=== PATIENT | female | born 1990 | race African-American/Black ===

== ENCOUNTER 2019-11-11 10:45 | Emergency (ER) | payer SELFPAY ==
--- NOTE | ~2019-11-11 | CT_ITS ---
EXAMINATION: CT abdomen pelvis w con EXAM DATE: 11/11/2019 12:10 INDICATION: Right lower quadrant pain. TECHNIQUE: Spiral CT of the abdomen and pelvis was performed following intravenous injection of 100 m L Omnipaque 350. Axial, coronal and sagittal images were reviewed. The dose-length product (DLP) fo r this examination was 1207.63 mGy-cm. The exposure was tailored according to patient size (auto mA exposure control), and iterative reconstruction (ASIR) was used as additional dose reduction techniqu e. There is no prior study for comparison. FINDINGS: The liver, spleen, adrenal glands and pancreas are unremarkable. Gallbladder is unremarkab le. No biliary obstruction. Region of decreased enhancement in the upper pole of the left kidney wi thout discrete mass identified. Appearance is suspicious for acute pyelonephritis. The uterus and ov carol are unremarkable, no adnexal mass. Right ovary is contiguous to the cecal base. The bladder is unremarkable. There is no retroperitoneal or pelvic lymphadenopathy. The appendix is not positively visualized. There is no pericecal inflammatory change to suggest appe ndicitis. The stomach and small bowel are unremarkable. There is expected amount of colonic stool. No free intraperitoneal gas. The heart is normal in size. There are no pericardial or pleural e ffusions. The lung bases are unremarkable. The bones are unremarkable. IMPRESSION: Left kidney superior pole heterogeneous enhancement most consistent with acute pyelonephr itis; correlate with urinalysis. Reviewed, dictated and finalized at location B. IMPRESSION: Left kidney superior pole heterogeneous enhancement most consistent with acute pyelonephritis; correlate with urinalysis.
[2019-11-11 10:49] VITALS: BP 136/93; PULSE 97; RESP 28; TEMP 36.1; O2SAT 100
[2019-11-11 11:36] LABS: Basophils Percent Auto 1.1 % (0.2-1.2); Eosinophils Absolute Auto 0.3 K/mm3 (0-0.3); Eosinophils Percent Auto 8.1 % (0-4.4); Hemoglobin 14.2 g/dL (12.0-15.0); Immature Granulocyte Absolute 0.01 K/mm3 (0.00-0.031); Immature Granulocyte Percent A 0.3 % (0-0.5); Lymphocytes Absolute Auto 1.73 K/mm3 (0.9-3.2); Lymphocytes Percent Auto 48.2 % (18.3-44.2); Mean Corpuscular Hemoglobin 31.1 pg (26-34); Mean Corpuscular Volume 94.3 fl (80-100); Mean Platelet Volume 10.6 fl (7.4-10.4); Monocytes Absolute Auto 0.3 K/mm3 (0.1-0.6); Monocytes Percent Auto 7.8 % (2.6-8.5); Neutrophils Absolute Auto 1.2 K/mm3 (1.3-6.7); Neutrophils Percent Auto 34.5 % (45.5-73.1); Platelet Count Result 269 k/mm3 (150-375); Red Blood Count 4.56 M/mm3 (4.2-5.4); Red Cell Distribution Width 12.8 % (11.5-14.5); White Blood Count 3.6 K/mm3 (4.5-10.0)
[2019-11-11 11:37] VITALS: BP 137/100; PULSE 88; RESP 18; O2SAT 100
[2019-11-11] MEDS: ONDANSETRON INJ 4 MG/2 ML VIAL IV PUSH (11:39)
[2019-11-11 11:41] LABS: Add Urine Microscopic? YES; Appearance Urine Clear (Clear); Bilirubin Urine Negative (Negative); Blood Urine 2+ (Negative); Color Urine Yellow (Yellow); Glucose Urine UA Negative (Negative); Ketones Urine Negative (Negative); Leukocyte Esterase Ur 1+ LEU/UL (Negative); Mucus Urine Few /lpf; Nitrate Urine Positive (Negative); Protein Urine 1+ mg/dL (Negative); Specific Grav Ur 1.019 (1.001-1.035); Squamous Epithelial Cell Urine Few /hpf (Few); Urobilinogen Urine Negative mg/dL (<2.0); WBC Urine 16-20 /hpf
[2019-11-11 11:48] LABS: Alanine Aminotransferase 42 U/L (4-35); Albumin Level 4.6 g/dL (3.5-5.1); Alkaline Phosphatase 69 U/L (38-126); Anion Gap 8 mmol/L (8-16); Aspartate Amino Transferase 36 U/L (14-36); Bilirubin,Total 0.3 mg/dL (0.2-1.3); Blood Urea Nitrogen 9 mg/dL (7-17); Calcium 9.7 mg/dL (8.4-10.2); Carbon Dioxide 27 mmol/L (22-30); Chloride 103 mmol/L (98-107); Estimated CRCL calculation 89 ml/min; Estimated Glomerular Filt Rate > 60; Glucose 98 mg/dL (65-105); Lipase 76 U/L (23-300); Potassium 3.9 mmol/L (3.4-5.0); Sodium 138 mmol/L (137-145)
--- NOTE | 2019-11-11 11:56 | PC.NURSE ---
PT IN CT AT THIS TIME, WILL MEDICATE PER PROVIDER ORDER UPON RETURN.
--- NOTE | 2019-11-11 11:57 | PC.NURSE ---
REPORT TO FLOWER SMITH AT THIS TIME, SHE HAS ASSUMED PT CARE.
[2019-11-11] MEDS: fentaNYL CITRATE INJ (*CRX) 100 MCG/2 ML VIAL 50 MCG IV PUSH (12:15)
[2019-11-11 12:40] VITALS: BP 118/68; PULSE 70; RESP 12; O2SAT 100
--- NOTE | 2019-11-11 13:26 | ED.GENADULT ---
HPI - General Adult General Chief complaint: Abdominal Pain <Ashanti Lambert PA-C - Last Filed: 11/11/19 22:00> Stated complaint: right side pain <Ashanti Lambert PA-C - Last Filed: 11/11/19 22:00> Time Seen by Provider: 11/11/19 10:51 <Ashanti Lambert PA-C - Last Filed: 11/11/19 22:00> Source: patient <MARTHA Barron Last Filed: 11/11/19 22:00> Mode of arrival: ambulatory <MARTHA Barron Last Filed: 11/11/19 22:00> Limitations: no limitations <Ashanti Lambert PA-C - Last Filed: 11/11/19 22:00> History of Present Illness HPI narrative: Patient presents with chief complaint of excruciating right flank pain that wraps around to her right lower quadrant that began at 9:00am after using the restroom. Patient states prior to this she did not have any abdominal pain, urinary symptoms, vaginal bleeding or discharge, nausea, vomiting, diarrhea or any other symptoms. Patient states she now has some nausea due to the pain. Patient denies fever, chills she denies history of kidney stones or frequent urinary tract infections. <Ashanti Lambert PA-C - Last Filed: 11/11/19 22:00> Related Data Allergies/adverse reactions: Allergies Allergy/AdvReac Type Severity Reaction Status Date / Time No Known Allergies Allergy Verified 11/11/19 10:53 <Ashanti Lambert PA-C - Last Filed: 11/11/19 22:00> Review of Systems Review of Systems: Narrative: CONSTITUTIONAL: Denies fever, chills, or sweats. EYES: Denies visual changes, redness, or discharge. ENT: Denies rhinorrhea, congestion, sore throat, or otalgia. CARDIOVASCULAR: Denies chest pain, palpitations, or edema. RESPIRATORY: Denies cough or dyspnea. GASTROINTESTINAL: Reports right flank and RLQ abdominal pain, nausea, denies vomiting, or diarrhea. GENITOURINARY: Denies dysuria or hematuria. SKIN: Denies rash or itching. MUSCULOSKELETAL: Denies back pain, myalgia, or joint pain NEUROLOGIC: Denies headache, numbness, dizziness, or weakness. PSYCHIATRIC: Denies anxiety or depression. <Ashanti Lambert PA-C - Last Filed: 11/11/19 22:00> [facility] Social History Social History: Social History Gender identity (if verbalized by the patient): Female <Ashanti Lambert PA-C - Last Filed: 11/11/19 22:00> Exam Narrative: Exam Narrative: GENERAL: patient writhing and moaning in pain. HEAD: Normocephalic, atraumatic. EYES: PERRLA and EOMI. ENT: Nares clear, no rhinorrhea or epistaxis. Mucous membranes moist. Oropharynx without tonsillar hypertrophy exudate or other lesions. Bilateral TMs pearly juarez nonbulging NECK: Supple. No adenopathy or masses. No vertebral tenderness or loss of ROM. CHEST: Clear to auscultation. No respiratory distress. No wheezes rales or rhonchi HEART: Regular rate and rhythm. Normal peripheral pulses. ABDOMEN: Soft, Tender with palpation of RLQ, mildly center abdomen but not over umbilicus, nondistended, normal active bowel sounds. No bruises noted. EXTREMITIES: No acute changes in ROM. No edema. SKIN: Warm, dry, no rash. NEURO: No focal deficits. Alert and oriented x3. PSYCH: Normal mood and affect. <Ashanti Lambert PA-C - Last Filed: 11/11/19 22:00> Course Vital Signs Vital signs: Vital Signs Temperature 36.1 C L 11/11/19 10:49 Pulse Rate 97 11/11/19 10:49 Respiratory Rate 28 H 11/11/19 10:49 Blood Pressure 136/93 H 11/11/19 10:49 Pulse Oximetry 100 11/11/19 10:49 Temperature 36.1 C L 11/11/19 10:49 Pulse Rate 75 11/11/19 15:11 Respiratory Rate 16 11/11/19 15:11 Blood Pressure 118/75 11/11/19 15:11 Pulse Oximetry 100 11/11/19 15:11 <Ashanti Lambert PA-C - Last Filed: 11/11/19 22:00> Vital Signs Temperature 36.1 C L 11/11/19 10:49 Pulse Rate 97 11/11/19 10:49 Respiratory Rate 28 H 11/11/19 10:49 Blood Pressure 136/93 H 11/11/19 10:49 Pulse Oximetry 100 11/11/19 10:49 Temperature 36.1 C L 11/11/19 10:49 Pulse Rate 75
[2019-11-11] MEDS: KETOROLAC 15 MG/ML VIAL (*BKC) IV PUSH (14:15)
[2019-11-11 15:11] VITALS: BP 118/75; PULSE 75; RESP 16; O2SAT 100
== END 2019-11-11 15:12 | disposition home or self-care (01) ==
PROVIDERS: Emergency Provider Emergency Medicine
DX: N39.0 Urinary tract infection, site not specified (principal)
CPT/HCPCS: 36415; 74177; 80053; 81001; 81025; 83690; 85025; 87077; 87086; 87088; 87186; 96365; 96366; 96368; 96375; 99284; J0131; J1885; J1956; J2405; J3010; Q9967

== ENCOUNTER 2020-02-20 08:38 | Emergency (ER) | payer BC, SELFPAY ==
--- NOTE | ~2020-02-20 | XR_ITS ---
XR elbow RT 2V 02/20/2020 09:56 INDICATION: Right elbow pain PROCEDURE: 4 views right elbow COMPARISON: No prior studies for comparison. FINDINGS: Fracture, dislocation or subluxation is not identified. The soft tissues appear within norm al limits. No foreign bodies are identified. IMPRESSION: 1: NO ACUTE BONE OR JOINT ABNORMALITY IDENTIFIED. Reviewed, dictated and finalized at location A. [employer]
--- NOTE | ~2020-02-20 | XR_ITS ---
EXAMINATION: XR chest 2V 02/20/2020 09:56 INDICATION: Left rib pain PROCEDURE: 2 views of the chest COMPARISON: No prior studies for comparison. FINDINGS: The lungs are clear. The cardiomediastinal silhouette is within normal limits. There are no pleural effusions. There is no pneumothorax suspected. IMPRESSION: 1: NO ACUTE CARDIOPULMONARY DISEASE. Reviewed, dictated and finalized at location A. PERSON
[2020-02-20 08:45] VITALS: BP 112/84; PULSE 90; RESP 15; TEMP 36.9; O2SAT 100
--- NOTE | 2020-02-20 09:10 | ED.GENADULT ---
HPI - General Adult General Chief complaint: Extremity Injury, Upper Stated complaint: RT arm injury/pain Time Seen by Provider: 02/20/20 09:00 History of Present Illness HPI narrative: Patient is a 29-year-old female comes into the ED today complaining of right upper extremity pain. Reports that about a week and a half ago she was slamming a door closed whenever the door hit something and the force pushed back into her right arm. Since then has been having constant pain in right upper extremity involving her forearm, elbow and shoulder. Pain is made worse with movements of right upper extremity. Pain is described as burning. Affecting her sleep. She put ice on her right arm once. She has been taking Tylenol with little relief. She used her [id number]'s [employer]bie once yesterday. Denies any numbness or tingling. Patient is also complaining of some pain in her left lower rib cage. This pain started this morning. The pain is made worse with any movements of the trunk and with deep breathing. There is no shortness of breath. Denies any abdominal pain, fevers. Reports that she did vomit once yesterday, she thinks that it was because of the fast food that she ate. There is no nausea today. No urinary symptoms. Does not believe that she is . No fevers or coughing. Related Data Allergies Allergy/AdvReac Type Severity Reaction Status Date / Time No Known Allergies Allergy Verified 02/20/20 08:49 Review of Systems Review of Systems: All systems reviewed & are unremarkable except as noted in HPI and below [facility] Social History Social History Gender identity (if verbalized by the patient): Female Exam Const: General: no acute distress and alert Orientation/consciousness: patient oriented x3 HENMT: Head: normal to inspection Eyes: Pupils: Equal, round and reactive pupils present Neck: Neck: normal visual inspection Other: No cervical motion tenderness. Full cervical range of motion in all planes. Negative Ren/Spurling test. Chest: Chest palpation & inspection: tenderness Other: Tender to palpate over left lower rib cage. Resp: Effort & Inspection: normal respiratory effort Auscultation: clear to auscultation bilaterally Cardio: Rate: regular rate GI: GI Palp: Yes Soft to palpation Percussion: Yes normal to percussion Other: Left upper quadrant tenderness : General: Yes no CVA tenderness Skin: General skin exam: normal color Neuro: General: patient oriented x3 and moves all extremities Extrem: Other: Tender to palpation diffusely over entire right upper extremity. Neurovascular intact throughout. Full range of motion throughout. No significant edema. 5 of 5 strength throughout. Mostly tender area seems to be around right elbow. Psych: Mental Status: mental status grossly normal Course Course Emergency Course: 9:49 a.m : Right arm pain felt to be muscular nature. Will check x-ray of elbow since that is her most painful area but educated patient on conservative management of her musculoskeletal pain. Pain in left lower chest is probably from the vomiting episode that she had yesterday. Will check x-ray as well. Toradol ordered. Urine hCG ordered. 11:45 a.m. work-up unremarkable. Patient feeling better. Agreeable for plan for discharge with conservative treatment and strict return to ED precautions for any new or worsening symptoms. Vital Signs Vital signs: Vital Signs Temperature 36.9 C 02/20/20 08:45 Pulse Rate 90 02/20/20 08:45 Respiratory Rate 15 02/20/20 08:45 Blood Pressure 112/84 02/20/20 08:45 Pulse Oximetry 100 02/20/20 08:45 Temperature 36.9 C 02/20/20 08:45 Pulse Rate 90 02/20/20 08:45 Respiratory Rate 15 02/20/20 08:45 Blood Pressure 112/84 02/20/20 08:45 Pulse Oximetry 100 02/20/20 08:45 Medical Decision Making Vital Signs Vital Signs: Vital Signs Temperature 36.9 C 02/20/20 08:45 Pulse Rate 90 02/20/20 08:45 Res
[2020-02-20] MEDS: KETOROLAC 30 MG/ML VIAL (*BKC) IM (09:46)
[2020-02-20 12:57] VITALS: BP 120/70; PULSE 82; RESP 18; O2SAT 100
== END 2020-02-20 12:58 | disposition home or self-care (01) ==
PROVIDERS: Emergency Provider Emergency Medicine
DX: S53.401A Unspecified sprain of right elbow, initial encounter (principal); R07.81 Pleurodynia; W22.8XXA Striking against or struck by other objects, initial encounter
CPT/HCPCS: 71046; 73070; 81025; 96372; 99284; J1885

== ENCOUNTER 2020-08-24 13:25 | Observation (INO) | payer BC, SELFPAY ==
--- NOTE | ~2020-08-24 | CT_ITS ---
EXAMINATION: CT abdomen pelvis w con DATE: 08/24/2020 17:17 INDICATION: Epigastric pain TECHNIQUE: Computed tomography (CT) of the abdomen and pelvis was performed with 100 cc Omnipaque 350 intravenous contrast. The dose-length product was 779.51 mGy-cm. Automated exposure control and iter ative reconstruction technique were employed. COMPARISON: CT dated 11/11/2011 FINDINGS: Lung bases are unremarkable. Heart size is normal. No significant pleural or pericardial ef fusion. No significant vascular abnormality. No lymphadenopathy. The liver, spleen, pancreas, adrenal glands and left kidney are unremarkable. There is a small subcentimeter cyst of the right kidney. Ga llbladder is present. There is mild diffuse thickening of the colon, suspicious for colitis. No obstr uction. No free air or free fluid. No lymphadenopathy. IMPRESSION: 1. Mild diffuse thickening of the colon, consistent with colitis, most likely infectious or inflammat ory. Reviewed, dictated and finalized at location A. IMPRESSION: 1. Mild diffuse thickening of the colon, consistent with colitis, most likely i nfectious or inflammatory.
[2020-08-24 13:31] VITALS: BP 149/102; PULSE 65; RESP 28; TEMP 36.9; O2SAT 100
--- NOTE | 2020-08-24 13:35 | ECG_ITS ---
Measurements Intervals [place] Rate: 71 P: 18 MO: 106 QRS: 30 QRSD: 82 T: -11 QT: 373 QTc: 406 Interpretive Statements SINUS RHYTHM WITH SHORT MO INTERVAL INCOMPLETE RIGHT BUNDLE BRANCH BLOCK LOW QRS VOLTAGE IN PRECORDIAL LEADS BORDERLINE T WAVE ABNORMALITY- ANTEROLAT/INF LEADS BASELINE ARTIFACT- I, II, III, AVR, AVL, AVF, V1-V2, V4, V6 BORDERLINE ECG Electronically Signed On 08-24-2020 13:45:10 CDT by Tonny Desai D.O.
--- NOTE | 2020-08-24 15:43 | ED.CHESTPAIN ---
HPI - Chest Pain General Chief Complaint: Abdominal Pain Stated Complaint: Abd Pain/Cp Time Seen by Provider: 08/24/20 15:03 Source: patient and RN notes reviewed Mode of arrival: ambulatory Limitations: no limitations History of Present Illness HPI narrative: Patient is 29 years old -[place] female presents with abdominal pain started earlier today associated with nausea and frequent vomiting. Patient denies any fever, reports some chills. Last menstrual period 2 weeks ago, patient is not vaccinated for COVID-19. Patient does not smoke, drinks occasionally and uses marijuana occasionally. Related Data Allergies Allergy/AdvReac Type Severity Reaction Status Date / Time No Known Allergies Allergy Verified 02/20/20 08:49 Review of Systems Review of Systems: Narrative: CONSTITUTIONAL: Denies fever, chills, or sweats. EYES: Denies visual changes, redness, or discharge. ENT: Denies rhinorrhea, congestion, sore throat, or otalgia. CARDIOVASCULAR: Denies chest pain, palpitations, or edema. RESPIRATORY: Denies cough or dyspnea. GASTROINTESTINAL: Denies abdominal pain, nausea, vomiting, or diarrhea. GENITOURINARY: Denies dysuria or hematuria. SKIN: Denies rash or itching. MUSCULOSKELETAL: Denies back pain, joint pain, or myalgia. NEUROLOGIC: Denies headache, numbness, or weakness. PSYCHIATRIC: Denies anxiety or depression. [facility] Social History Social History Gender identity (if verbalized by the patient): Female Exam Narrative: Exam Narrative: General appearance: Well-developed, well-nourished, crying and screaming because of pain Skin: Normal color Head: Normocephalic, nontraumatic Eyes: Clear conjunctiva ENT: Oropharynx normal, ears normal, nose normal Neck: Supple, nontender Chest and respiratory: Airway patent, no respiratory distress, no accessory muscle use Heart: Regular rate/rhythm Abdomen: Soft, diffuse tenderness and guarding of the epigastric and right upper quadrant Vascular: Normal peripheral pulses, normal capillary refill. Musculoskeletal: Normal range of motion, nontender back Neurologic: Alert and oriented ?3, PROSTHETIC AIDE is normal as tested, no gross motor deficit Course Course Emergency Course: Improving Consultations Consultation #1: Dr. Smith, Admit for observation Date: 08/24/20 Time: 17:48 Vital Signs Vital signs: Vital Signs Temperature 36.9 C 08/24/20 13:31 Pulse Rate 65 08/24/20 13:31 Respiratory Rate 28 H 08/24/20 13:31 Blood Pressure 149/102 H 08/24/20 13:31 Pulse Oximetry 100 08/24/20 13:31 Temperature 36.9 C 08/24/20 13:31 Pulse Rate 65 08/24/20 13:31 Respiratory Rate 28 H 08/24/20 13:31 Blood Pressure 149/102 H 08/24/20 13:31 Pulse Oximetry 100 08/24/20 13:31 MDM - Chest Pain MDM Narrative Medical decision making narrative: Pancreatitis, cholecystitis, perforated peptic ulcers are my concern. Labs, CT abdomen pelvis with IV contrast, IV fluid, IV Dilaudid and Zofran ordered. Further plan to follow Differential Diagnosis Differential diagnosis: Likely atypical chest pain, biliary colic and other (Pancreatitis, gastritis, gastroesophagitis) Lab Data Result diagrams: 08/24/20 15:43 08/24/20 15:42 Labs: Lab Results 08/24/20 08/24/20 08/24/20 Range/Units 15:42 15:43 15:45 WBC 7.5 (4.5-10.0) K/mm3 RBC 4.65 (4.2-5.4) M/mm3 Hgb 13.7 (12.0-15.0) g/dL Hct 42.1 (37.0-47.0) % MCV 90.5 (80-100) fl MCH 29.5 (26-34) pg MCHC 32.5 (32-36) g/dl RDW 13.7 (11.5-14.5) % Plt Count 278 (150-375) k/mm3 MPV 10.4 (7.4-10.4) fl Immature Gran % (Auto)
[2020-08-24] MEDS: SODIUM CHLORIDE 0.9% IV 1,000 ML 999 ML IV CONT ×2 (15:50→18:02)
[2020-08-24] MEDS: ONDANSETRON INJ 4 MG/2 ML VIAL IV PUSH ×2 (15:51→20:28)
[2020-08-24 15:52] LABS: Basophils Absolute Auto 0.1 K/mm3 (0.0-0.1); Basophils Percent Auto 0.7 % (0.2-1.2); Eosinophils Absolute Auto 0.1 K/mm3 (0-0.3); Eosinophils Percent Auto 0.7 % (0-4.4); Hematocrit 42.1 % (37.0-47.0); Hemoglobin 13.7 g/dL (12.0-15.0); Immature Granulocyte Absolute 0.02 K/mm3 (0.00-0.031); Immature Granulocyte Percent A 0.3 % (0-0.5); Lymphocytes Absolute Auto 1.31 K/mm3 (0.9-3.2); Lymphocytes Percent Auto 17.5 % (18.3-44.2); Mean Corpuscular HGB Conc 32.5 g/dl (32-36); Mean Corpuscular Hemoglobin 29.5 pg (26-34); Mean Corpuscular Volume 90.5 fl (80-100); Mean Platelet Volume 10.4 fl (7.4-10.4); Monocytes Absolute Auto 0.3 K/mm3 (0.1-0.6); Monocytes Percent Auto 3.7 % (2.6-8.5); Neutrophils Absolute Auto 5.8 K/mm3 (1.3-6.7); Neutrophils Percent Auto 77.1 % (45.5-73.1); Platelet Count Result 278 k/mm3 (150-375); Red Blood Count 4.65 M/mm3 (4.2-5.4); Red Cell Distribution Width 13.7 % (11.5-14.5); White Blood Count 7.5 K/mm3 (4.5-10.0)
[2020-08-24] MEDS: HYDROmorphone HCL INJ (*CRX) 1 MG/ML SYR 0.5 MG IV PUSH (15:54)
[2020-08-24 16:05] LABS: Add Urine Microscopic? YES; Appearance Urine Clear (Clear); Bilirubin Urine Negative (Negative); Blood Urine Negative (Negative); Color Urine Yellow (Yellow); Glucose Urine UA Negative (Negative); Ketones Urine Trace mg/dL (Negative); Leukocyte Esterase Ur Negative LEU/UL (Negative); Mucus Urine Rare /lpf; Nitrate Urine Negative (Negative); Protein Urine Negative (Negative); RBC Urine 0-2 /hpf (0-2); Specific Grav Ur 1.017 (1.001-1.035); Squamous Epithelial Cell Urine Many /hpf (Few); Urobilinogen Urine Negative mg/dL (<2.0)
[2020-08-24 16:27] LABS: Troponin I < 0.012 ng/mL (0.000-0.034)
[2020-08-24 16:32] LABS: Alanine Aminotransferase 23 U/L (4-35); Albumin Level 4.9 g/dL (3.5-5.1); Alkaline Phosphatase 82 U/L (38-126); Anion Gap 12 mmol/L (8-16); Aspartate Amino Transferase 33 U/L (14-36); Bilirubin,Total 0.7 mg/dL (0.2-1.3); Blood Urea Nitrogen 8 mg/dL (7-17); Calcium 10.3 mg/dL (8.4-10.2); Carbon Dioxide 20 mmol/L (22-30); Chloride 108 mmol/L (98-107); Estimated Glomerular Filt Rate > 60; Glucose 90 mg/dL (65-105); Lipase 50 U/L (23-300); Potassium 4.4 mmol/L (3.4-5.0); Sodium 140 mmol/L (137-145)
[2020-08-24] MEDS: metroNIDAZOLE 500 MG/ISO 100ML 500 MG/100 ML BAG 100 MG IVPB (18:03)
[2020-08-24 18:43] VITALS: BP 136/87; PULSE 54; RESP 16; O2SAT 100
--- NOTE | 2020-08-24 18:57 | PC.NURSE ---
This patient, Dari Beard, was admitted to [facility] Surg Room 319-01. Patient/family oriented to hospital policies and general routines including ID bracelet, bed and alarms, visiting hours, pain management, procedures, bathroom and other care routines, personal items, smoking policy, room service/diet, and visiting hours. Report received from Colette CRENSHAW Information on how to activate the Rapid Response Team has been discussed. Patient/Family are encouraged to report perceived risks to care and to ask questions if they do not understand what they are told or what they should do.
[2020-08-24 19:03] VITALS: BP 113/87; PULSE 71; RESP 26; TEMP 36.4; O2SAT 100
[2020-08-24] MEDS: SODIUM CHLORIDE 0.9% IV 1,000 ML 125 ML IV CONT (19:03)
--- NOTE | 2020-08-24 19:10 | PC.NURSE ---
Pt sent to floor with Levaquin infusing
[2020-08-24 19:55] VITALS: BMI 38.7
[2020-08-24] MEDS: PROMETHAZINE HCL 25 MG/ML AMPUL IM (22:29)
[2020-08-25] MEDS: metroNIDAZOLE 500 MG/ISO 100ML 500 MG/100 ML BAG 100 MG IVPB ×3 (02:33→17:10)
--- NOTE | 2020-08-25 03:06 | PM.IMHP ---
H&P: HPI History of Present Illness Date/Time: 08/25/20 03:06 Chief Complaint: ABDOMINAL PAIN Narrative: THIS IS A BIT 29-YEAR-OLD FEMALE WITH KNOWN SIGNIFICANT PAST MEDICAL HISTORY SHE PRESENTED TO THE EMERGENCY ROOM DUE TO ABDOMINAL PAIN SOME NAUSEA AND VOMITING. SHE HAS BEEN IN HER USUAL STATE OF HEALTH. SHE DENIES ANY FEVERS ANY RIGORS ANY CHILLS ANY COUGH ANY SPUTUM PRODUCTION ANY HEMATEMESIS OR MELENA, NO WEIGHT LOSS NO MUSCLE ACHES OR PAINS NO JOINT PAIN NO RASHES, NO CHANGES IN HER STOOL CHARACTER, NO CHANGES IN HER APPETITE. PRELIMINARY WORKUP WAS SIGNIFICANT FOR CT SCAN WITH COLITIS. BMP WAS UNREMARKABLE WELL CBC. Review of Systems Review of Systems: Narrative: ABDOMINAL PAIN Constitutional: Constitutional: Denies chills, Denies fatigue, Denies fever(s) and Denies malaise Eyes: Eyes: Denies change in vision ENT: Denies nasal congestion, Denies nasal discharge and Denies nasal obstruction Cardiovascular: Cardiovascular: Denies lightheadedness, Denies radiating jaw, neck or arm pain, Denies palpitations, Denies dyspnea on exertion and Denies orthopnea Respiratory: Respiratory: Denies cough and Denies dyspnea Gastrointestinal: Gastrointestinal: Reports abdominal pain, Reports diarrhea, Reports nausea and Reports vomiting Genitourinary: Genitourinary: Reports no additional female genitourinary complaints Musculoskeletal: Musculoskeletal: Denies arthralgias, Denies joint swelling and Denies stiffness Integumentary/Breasts: Skin/Breast: Denies rash and Denies skin ulcer Neurologic: Reports system reviewed and no additional complaints, except as documented Psychiatric: Psychiatric: Reports no additional psychiatric complaints Endocrine: Endocrine: Reports no additional endocrine complaints Hematologic/Lymphatic: Hematologic/Lymphatic: Reports no additional hematologic/lymphatic complaints Allergic/Immunologic: Allergic/Immunologic: Reports no additional allergic/immunologic complaints [facility] Social History Social History Smoking status: Never smoker Second hand tobacco smoke exposure: No Alcohol intake: current Drinks per week: 1 Substance use type: marijuana Gender identity (if verbalized by the patient): Female Spiritual care concerns: No Meds Home Medications and Allergies Home Medications Medication Instructions Recorded Confirmed Type ibuprofen 800 mg PO TID PRN #30 tablet 02/20/20 08/24/20 Rx Allergies Allergy/AdvReac Type Severity Reaction Status Date / Time No Known Allergies Allergy Verified 02/20/20 08:49 Vital Signs Vital Signs - 24 hr 08/24/20 13:31 08/24/20 18:43 08/24/20 19:03 Temperature 98.5 F 97.6 F Pulse Rate 65 54 L 71 Respiratory Rate 28 H 16 26 H Blood Pressure 149/102 H 136/87 113/87 Pulse Oximetry 100 100 100 Exam Narrative: Exam Narrative: LAYING IN BED Const: General: cooperative, comfortable, no acute distress, well developed, alert, awake and other ( WELL-APPEARING) Nutritional Appearance: overweight Orientation/consciousness: patient oriented x3 HENMT: Head: normal to inspection, normocephalic and atraumatic Ears: hearing grossly normal bilaterally General nose exam: Normal external nose present Face and sinus: normal facial exam Mouth: Yes Normal oral and palatal mucosa present Eyes: General: appearance normal, both eyes and all related structures Alignment and Position: alignment normal Pupils: Equal, round and reactive pupils present EOM: EOMs intact bilaterally Neck: Neck: full ROM, no lymphadenopathy, supple and no JVD Thyroid: thyroid normal Lymphatic: no lymphadenopathy noted Resp: Effort & Inspection: normal respiratory effort and able to speak in complete sentences Auscultation: clear to auscultation bilaterally Cardio: Jugular venous distension: no JVD Rate: regular rate Rhythm: regular rhythm Heart sounds: S1 normal heart sound present and S2 normal h
[2020-08-25 06:00] VITALS: BP 119/62; PULSE 74; RESP 16; TEMP 36.9; O2SAT 100
[2020-08-25 14:00] VITALS: BP 105/56; PULSE 65; RESP 18; TEMP 36.4; O2SAT 99
[2020-08-25] MEDS: ONDANSETRON INJ 4 MG/2 ML VIAL IV PUSH ×2 (15:00→19:53)
[2020-08-25] MEDS: SODIUM CHLORIDE 0.9% IV 1,000 ML 125 ML IV CONT (15:03)
--- NOTE | 2020-08-25 17:06 | PM.IMPN ---
Progress Note: A&P Assessment and Plan (1) Colitis: Code(s): K52.9 - Noninfective gastroenteritis and colitis, unspecified Status: Acute Assessment and Plan: CLEAR LIQUID DIET ADVANCE IN AM TOLERATED LEVOFLOXACIN AND FLAGYL SUPPORTIVE CARE CONSIDER GI CONSULT FOLLOW-UP IN OUTPATIENT SETTING (2) Vomiting: Qualifiers: Nausea presence: with nausea Vomiting Intractability: unspecified Vomiting type: unspecified Qualified Code(s): R11.2 - Nausea with vomiting, unspecified Code(s): R11.10 - Vomiting, unspecified Status: Acute Assessment and Plan: SUPPORTIVE CARE Subjective Date/time seen: 08/25/20 17:06 Interval history: Admitted 08/24 with n/v, abd pain. 08/25: Feels better. Tolerating some clear liquids. No pain. No emesis. No bleeding. No sob. Review of Systems Review of Systems: All systems reviewed & are unremarkable except as noted in HPI and below Exam Narrative: Exam Narrative: HEENT: PERRL, sclerae nonicteric, pharyngeal mucosa pink and intact NECK: No JVD, adenopathy, or thyromegaly CHEST: Clear to auscultation. Normal effort. HEART: NL S1/S2, regular, no murmur ABDOMEN: BS+, soft, MILD TENDERNESS IN EPIGASTRIUM AND BILATERAL LOWER QUANDRANTS, no mass, no bruits EXTREMITIES: No cyanosis, edema, or clubbing NEUROLOGIC: CN intact and symmetric to inspection. MUSCULOSKELETAL: Tone and strength symmetric. PSYCH: Alert. Oriented to person, place, and time. Objective Data Vital Signs Vital Signs: Vital Signs - 24 hr 08/24/20 18:43 08/24/20 19:03 08/25/20 06:00 Temperature 97.6 F 98.4 F Pulse Rate 54 L 71 74 Respiratory Rate 16 26 H 16 Blood Pressure 136/87 113/87 119/62 Pulse Oximetry 100 100 100 08/25/20 14:00 Temperature 97.5 F L Pulse Rate 65 Respiratory Rate 18 Blood Pressure 105/56 L Pulse Oximetry 99 Intake/Output Intake/Output: Intake & Output 08/22/20 08/23/20 08/24/20 08/25/20 23:59 23:59 23:59 23:59 Intake Total 2200 1320 Output Total 350 Balance 2200 970 Meds/Results Medications: Active Medications Generic Name Dose Route Start Last Admin Trade Name Freq PRN Reason Stop Dose Admin Acetaminophen 1,000 mg in 100 mls @ 400 mls/hr 08/24/20 17:57 Ofirmev 1,000 Mg Ivpb IVPB 08/25/20 17:58 Q6H PRN Mild Pain (1-3) or Fever Sodium Chloride 1,000 mls @ 125 mls/hr 08/24/20 18:00 08/25/20 15:03 Normal Saline Iv IV CONT 125 mls/hr .Q8H CONNIE Administration Metronidazole 500 mg in 100 mls @ 100 mls/hr 08/25/20 02:00 08/25/20 10:17 Flagyl 500 Mg/Iso Soln 100 Ml IVPB Infused Q8H CONNIE Infusion Levofloxacin/Dextrose 750 mg in 150 mls @ 100 mls/hr 08/25/20 19:00 Levaquin 750 Mg/D5w 150 Ml IVPB Q24H CONNIE Ondansetron HCl 4 mg 08/24/20 17:57 08/25/20 15:00 Ondansetron Inj 4 Mg/2 Ml Vial IV PUSH 4 mg Q4H PRN Administration Nausea Radiology Results: ITS Impressions Abdomen/Pelvis CT 08/24/20 17:21 IMPRESSION: 1. Mild diffuse thickening of the colon, consistent with colitis, most likely infectious or inflammatory.
[2020-08-25 20:00] VITALS: PULSE 59; RESP 16; O2SAT 99
[2020-08-25] MEDS: diphenhydrAMINE HCl CAP 25 MG CAPSULE PO (21:40)
[2020-08-25 21:42] VITALS: BP 118/66; PULSE 59; RESP 16; TEMP 36.7; O2SAT 99
[2020-08-26] MEDS: SODIUM CHLORIDE 0.9% IV 1,000 ML 125 ML IV CONT ×2 (01:36→12:49)
[2020-08-26] MEDS: metroNIDAZOLE 500 MG/ISO 100ML 500 MG/100 ML BAG 100 MG IVPB ×2 (01:40→09:07)
[2020-08-26 06:00] VITALS: BP 121/73; PULSE 57; RESP 16; TEMP 36.8; O2SAT 100
[2020-08-26 07:34] LABS: CRP 0.5 mg/dL (<1.0)
[2020-08-26 08:04] LABS: Anion Gap 7 mmol/L (8-16); Blood Urea Nitrogen 10 mg/dL (7-17); Calcium 8.4 mg/dL (8.4-10.2); Carbon Dioxide 22 mmol/L (22-30); Chloride 111 mmol/L (98-107); Estimated CRCL calculation 98 ml/min; Estimated Glomerular Filt Rate > 60; Glucose 85 mg/dL (65-105); Potassium 3.6 mmol/L (3.4-5.0); Sodium 140 mmol/L (137-145)
[2020-08-26 09:27] LABS: Hematocrit 36.3 % (37.0-47.0); Hemoglobin 11.6 g/dL (12.0-15.0); Mean Corpuscular Hemoglobin 30.1 pg (26-34); Mean Platelet Volume 10.8 fl (7.4-10.4); Platelet Count Result 211 k/mm3 (150-375); Red Blood Count 3.86 M/mm3 (4.2-5.4); Red Cell Distribution Width 14.1 % (11.5-14.5); White Blood Count 6.5 K/mm3 (4.5-10.0)
--- NOTE | 2020-08-26 13:34 | PM.DS ---
DS: Admitting Diagnosis Admitting Diagnosis Admitting Diagnosis: colitis DS: Discharge Diagnosis Discharge Diagnosis (1) Colitis: Code(s): K52.9 - Noninfective gastroenteritis and colitis, unspecified Status: Acute Assessment and Plan: BLAND DIET LEVOFLOXACIN AND FLAGYL CONSIDER GI CONSULT FOLLOW-UP IN OUTPATIENT SETTING (2) Vomiting: Qualifiers: Nausea presence: with nausea Vomiting Intractability: unspecified Vomiting type: unspecified Qualified Code(s): R11.2 - Nausea with vomiting, unspecified Code(s): R11.10 - Vomiting, unspecified Status: Acute Assessment and Plan: RESOLVED DS: Summary Hospital Course Reason for hospitalization: NAUSEA VOMITING Hospital Course: admitted with nausea vomiting and abdominal discomfort. Found to have CT signs of colitis. Treated with bowel rest IVF and IV Levaquin plus Flagyl. Gradually improved. Diet was advanced. By day of discharge was up and about independently and tolerating diet. Wished to return to work 2 days after discharge. Status at Discharge Functional status at discharge: independent ambulation Overall status at discharge: patient is progressing back to baseline Time Spent with Patient Time attestation: Total time spent providing and/or coordinating discharge services: Time spent: Greater than 30 minutes Exam Narrative: Exam Narrative: HEENT: PERRL, sclerae nonicteric, pharyngeal mucosa pink and intact NECK: No JVD, adenopathy, or thyromegaly CHEST: Clear to auscultation. Normal effort. HEART: NL S1/S2, regular, no murmur ABDOMEN: BS+, soft, nontender, no mass, no bruits EXTREMITIES: No cyanosis, edema, or clubbing NEUROLOGIC: CN intact and symmetric to inspection. MUSCULOSKELETAL: Tone and strength symmetric. PSYCH: Alert. Oriented to person, place, and time. DS: Data Data Completed and Pending Labs on day of discharge: Labs from last 24 hours 08/26/20 08/26/20 08/26/20 08:42 07:34 06:55 WBC 6.5 RBC 3.86 L Hgb 11.6 L Hct 36.3 L MCV 94.0 MCH 30.1 MCHC 32.0 RDW 14.1 Plt Count 211 MPV 10.8 H Sodium 140 Potassium 3.6 Chloride 111 H Carbon Dioxide 22 Anion Gap 7 L BUN 10 Creatinine 0.80 Estim Creat Clear Calc 98 Estimated GFR > 60 Glucose 85 Calcium 8.4 C-Reactive Protein 0.5 Discharge Plan Discharge Consulting providers: Bro Smith Discharging Clinician: Tom Foley Patient Disposition: Home, Self-Care Activity: no straining Diet: bland Discharge Instructions: Gradually add regular foods back into diet. Avoid alcohol until antibiotics are completed. Patient Instructions: Antibiotic Form, Acute Nausea and Vomiting (GEN), Colitis (ED) Stand Alone Forms: General Discharge Information, Work/School Release IP Follow-up/Referrals: PHYSICIAN,COUNTY JUDGE [Primary Care Provider] - 1 Week Discharge Medications: New levofloxacin 500 mg tablet 500 mg PO DAILY Qty: 3 RF: 0 metronidazole 500 mg tablet 500 mg PO Q12H Qty: 7 RF: 0 Discontinued ibuprofen 800 mg tablet 800 mg PO TID PRN (Reason: pain) Qty: 30 RF: 0 Date of admission: 08/24/20 17:57 Primary Care Provider: PHYSICIAN,COUNTY JUDGE Admitting Provider: Carlos Eduardo Titus Attending physician on admission: Carlos Eduardo Titus Condition: Stable
--- NOTE | 2020-10-04 17:12 | WPDGIPROGNO ---
Progress Note: A&P Additional Plan GI Sarah 04 Oct 2020 Note placed in chart at request of administration. Patient admitted through ER. Consultation requested. After discussion with Hospitalist it was decided that inpatient consultation not needed and patient could follow-up with GI as OP. Consultation was not cancelled. Patient was discharged uneventfully by Hospitalist service. Thanks, Bro Smith MD Subjective Date/time seen: 10/04/20 17:12 Objective Data Meds/Results Radiology Results: ITS Impressions Abdomen/Pelvis CT 08/24/20 17:21 IMPRESSION: 1. Mild diffuse thickening of the colon, consistent with colitis, most likely infectious or inflammatory.
== END 2020-08-26 14:37 | disposition home or self-care (01) ==
LOC: ANHED 17:48 → ANH3MEDSUR 08-25 10:38
PROVIDERS: Admitting Provider Internal Medicine; Emergency Provider Emergency Medicine; Visit Provider Internal Medicine
DX: K52.9 Noninfective gastroenteritis and colitis, unspecified (principal); R11.2 Nausea with vomiting, unspecified
CPT/HCPCS: 36415; 74177; 80048; 80053; 81001; 81025; 83690; 84484; 85025; 85027; 86140; 93005; 96361; 96365; 96366; 96367; 96368; 96375; 96376; 99285; A9270; G0378; G0379; J0131; J1170; J1956; J2405; J2550; J7030; Q9967